=== PATIENT | female | born 1995 | race Caucasian/White ===

== ENCOUNTER 2017-09-12 10:55 | Emergency (ER) | payer BC ==
[2017-09-12 11:04] VITALS: BP 115/67
--- NOTE | 2017-09-12 11:36 | ER Document Report ---
ED Medical Screen (RME) - General Chief Complaint: Abdominal Pain Stated Complaint: ABDOMINAL PAIN Time Seen by Provider: 09/12/17 11:35 Notes: painful intercourse with vag discharge. abd pain/fever/diarrhea TRAVEL OUTSIDE OF THE [place] IN LAST 30 DAYS: No - Related Data Allergies/Adverse Reactions: amoxicillin Allergy (Verified 09/12/17 11:25) rash Past Medical History - Social History Chew tobacco use (# tins/day): No Frequency of alcohol use: Occasional Drug Abuse: None Renal/ Medical History: Denies: Hx Peritoneal Dialysis Physical Exam - Vital signs Vitals: Temp Pulse Resp BP Pulse Ox 98.4 F 77 16 115/67 99 09/12/17 11:02 09/12/17 11:02 09/12/17 11:02 09/12/17 11:02 09/12/17 11:02 Course - Vital Signs Vital signs: Temp Pulse Resp BP Pulse Ox 98.4 F 77 16 115/67 99 09/12/17 11:02 09/12/17 11:02 09/12/17 11:02 09/12/17 11:02 09/12/17 11:02
[2017-09-12 12:19] LABS: ABSOLUTE BASOPHILS # (AUTO) 0.1 10^3/uL (0.0-0.2); ABSOLUTE EOSINOPHILS # (AUTO) 0.1 10^3/uL (0.0-0.6); ABSOLUTE MONOCYTES (AUTO) 0.3 10^3/uL (0.1-1.4); ABSOLUTE NEUT (AUTO) 5.3 10^3/uL (1.7-8.2); BASOPHILS % (AUTO) 1.1 % (0-2); EOSINOPHILS % (AUTO) 1.3 % (0-6); HEMATOCRIT 39.9 % (36.0-47.0); HEMOGLOBIN 13.8 g/dL (12.0-15.5); MEAN CORPUSCULAR HGB CONC 34.6 g/dL (32.0-36.0); MEAN CORPUSCULAR VOLUME 90 fl (80-97); MONOCYTES % (AUTO) 3.9 % (3-13); PLATELET COUNT 231 10^3/uL (150-450); RED BLOOD COUNT 4.44 10^6/uL (3.72-5.28); RED CELL DISTRIBUTION WIDTH 13.3 % (11.5-14.0); SEGMENTED NEUTROPHILS % (AUTO) 67.7 % (42-78); TOTAL CELLS COUNTED % (AUTO) 100 %; WHITE BLOOD COUNT 7.8 10^3/uL (4.0-10.5)
[2017-09-12] MEDS ORDERED: IBUPROFEN 800 MG TABLET PO ONE (12:30)
--- NOTE | 2017-09-12 12:30 | ER Document Report ---
ED GI/ - General Chief Complaint: Abdominal Pain Stated Complaint: ABDOMINAL PAIN Time Seen by Provider: 09/12/17 11:35 Mode of Arrival: Ambulatory Information source: Patient Notes: Patient is a 22-year-old female who presents to the ER today for right lower quadrant abdominal pain 2-3 days. Patient states that she has a history of ovarian cysts, one that has ruptured before and states that this feels like the same pain. Patient still has her appendix. She admits to nausea and vomiting but no fever chills, diarrhea. She denies any abnormal vaginal discharge, dysuria, worry for any STDs. TRAVEL OUTSIDE OF THE [place] IN LAST 30 DAYS: No - Related Data Allergies/Adverse Reactions: amoxicillin Allergy (Verified 09/12/17 11:25) rash Past Medical History - General Information source: Patient - Social History Smoking Status: Current Some Day Smoker Chew tobacco use (# tins/day): No Frequency of alcohol use: Occasional Drug Abuse: None Family History: Reviewed & Not Pertinent Patient has suicidal ideation: No Patient has homicidal ideation: No Renal/ Medical History: Denies: Hx Peritoneal Dialysis Review of Systems - Review of Systems Constitutional: No symptoms reported EENT: No symptoms reported Cardiovascular: No symptoms reported Respiratory: No symptoms reported Gastrointestinal: See HPI Genitourinary: No symptoms reported Female Genitourinary: See HPI Musculoskeletal: No symptoms reported Skin: No symptoms reported Hematologic/Lymphatic: No symptoms reported Neurological/Psychological: No symptoms reported Physical Exam - Vital signs Vitals: Temp Pulse Resp BP Pulse Ox 98.4 F 77 16 115/67 99 09/12/17 11:02 09/12/17 11:02 09/12/17 11:02 09/12/17 11:02 09/12/17 11:02 - Notes Notes: PHYSICAL EXAMINATION: GENERAL: Well-appearing and in no acute distress. HEAD: Atraumatic, normocephalic. EYES: Pupils equal round and reactive to light, extraocular movements intact, sclera anicteric, conjunctiva are normal. NECK: Normal range of motion, supple without lymphadenopathy LUNGS: CTAB and equal. No wheezes rales or rhonchi. HEART: Regular rate and rhythm without murmurs ABDOMEN: Soft, right lower quadrant, suprapubic tenderness. No guarding, no rebound BACK: no vertebral tenderness, normal ROM GI/: no CVA tenderness EXTREMITIES: Normal range of motion, no pitting edema. No cyanosis. NEUROLOGICAL: Cranial nerves grossly intact. Normal sensory/motor exams. PSYCH: Normal mood, normal affect. SKIN: Warm, Dry, normal turgor, no rashes or lesions noted Course - Re-evaluation Re-evalutation: 09/12/17 14:21 Patient eloped at 1358, did not want to wait on ultrasound any longer. Ultrasound was not performed today. Lab work unremarkable. - Vital Signs Vital signs: Temp Pulse Resp BP Pulse Ox 98.4 F 77 16 115/67 99 09/12/17 11:02 09/12/17 11:02 09/12/17 11:02 09/12/17 11:02 09/12/17 11:02 - Laboratory Result Diagrams: 09/12/17 11:59 09/12/17 11:59 Laboratory results interpreted by me: 09/12/17 09/12/17 11:59 11:59 AST 103 H Alkaline Phosphatase 34 L Urine Ketones TRACE H Urine Blood MODERATE H Urine Urobilinogen 2.0 H Ur Leukocyte Esterase TRACE H Discharge - Discharge Clinical Impression: Right lower quadrant abdominal pain Condition: Stable Disposition: ELOPED
[2017-09-12 12:36] LABS: ALANINE AMINOTRANSFERASE 48 U/L (9-52); ALBUMIN 4.6 g/dL (3.5-5.0); ALKALINE PHOSPHATASE 34 U/L (38-126); ANION GAP 9 (5-19); ASPARTATE AMINO TRANSFERASE 103 U/L (14-36); BILIRUBIN,DIRECT 0.4 mg/dL (0.0-0.4); BLOOD UREA NITROGEN 19 mg/dL (7-20); CALCIUM 10.1 mg/dL (8.4-10.2); CARBON DIOXIDE 24 mmol/L (22-30); CHLORIDE 105 mmol/L (98-107); GLUCOSE 82 mg/dL (75-110); POTASSIUM 4.5 mmol/L (3.6-5.0); SODIUM 138.1 mmol/L (137-145); TOTAL PROTEIN 7.2 g/dL (6.3-8.2)
[2017-09-12 13:01] LABS: APPEARANCE,URINE SLIGHTLY-CLOUDY; BILIRUBIN,URINE NEGATIVE (NEGATIVE); GLUCOSE, URINE NEGATIVE (NEGATIVE); KETONES,URINE TRACE mg/dL (NEGATIVE); LEUKOCYTE ESTERASE,URINE TRACE (NEGATIVE); NITRITE,URINE NEGATIVE (NEGATIVE); PROTEIN,URINE NEGATIVE (NEGATIVE); URINE SPECIFIC GRAVITY 1.029
[2017-09-12 13:02] LABS: COLOR,URINE YELLOW
== END 2017-09-12 13:56 | disposition left against medical advice (07) ==
LOC: ER 10:55
DX: R10.31 Right lower quadrant pain (principal); R11.2 Nausea with vomiting, unspecified; F17.200 Nicotine dependence, unspecified, uncomplicated; Z87.42 Personal history of other diseases of the female genital tract; Z88.0 Allergy status to penicillin
CPT/HCPCS: 36415; 80053; 81001; 81025; 85025; 99281

== ENCOUNTER 2019-04-12 09:16 | Emergency (ER) | payer BC ==
[2019-04-12 09:23] VITALS: BP 105/74
[2019-04-12] MEDS ORDERED: ONDANSETRON 4 MG TAB.RAPDIS PO ONE (09:31)
--- NOTE | 2019-04-12 09:34 | ER Document Report ---
ED Medical Screen (RME) - General Chief Complaint: Upper Abdominal Pain Stated Complaint: TROUBLE BREATHING Time Seen by Provider: 04/12/19 09:26 Mode of Arrival: Ambulatory Information source: Patient Notes: 24-year-old female presented to ED for complaint of right upper quadrant pain that started on Tuesday. She states that by Tuesday her abdominal pain was all the way across the upper abdomen and by this morning she is getting some pain in her right shoulder and sometimes feels like it goes down her right arm. She states she has been nauseated but has not been vomiting. She states she does has noticed that when she eats fats or spices that the pain is much worse. She states she does have a medical history of ovarian breast and kidney cyst and the only surgery she has had his breast augmentation. 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 Patient is alert oriented respirations regular and unlabored speaking in full sentences walks with a even steady gait. I have greeted and performed a rapid initial assessment of this patient. A comprehensive ED assessment and evaluation of the patient, analysis of test results and completion of medical decision making process will be conducted by an additional ED providers. Dictation of this chart was performed using voice recognition software; therefore, there may be some unintended grammatical errors. TRAVEL OUTSIDE OF THE [place] IN LAST 30 DAYS: No - Related Data Allergies/Adverse Reactions: amoxicillin Allergy (Verified 04/12/19 09:17) rash Past Medical History Renal/ Medical History: Denies: Hx Peritoneal Dialysis Physical Exam - Vital signs Vitals: Temp Pulse Resp BP Pulse Ox 97.4 F 91 15 105/74 97 04/12/19 09:21 04/12/19 09:21 04/12/19 09:21 04/12/19 09:21 04/12/19 09:21 Course - Vital Signs Vital signs: Temp Pulse Resp BP Pulse Ox 97.4 F 91 15 105/74 97 04/12/19 09:21 04/12/19 09:21 04/12/19 09:21 04/12/19 09:21 04/12/19 09:21
[2019-04-12 10:00] LABS: ABSOLUTE BASOPHILS # (AUTO) 0.1 10^3/uL (0.0-0.2); ABSOLUTE EOSINOPHILS # (AUTO) 0.2 10^3/uL (0.0-0.6); ABSOLUTE LYMPHOCYTES (AUTO) 1.8 10^3/uL (0.5-4.7); ABSOLUTE MONOCYTES (AUTO) 0.6 10^3/uL (0.1-1.4); ABSOLUTE NEUT (AUTO) 7.9 10^3/uL (1.7-8.2); BASOPHILS % (AUTO) 0.7 % (0-2); EOSINOPHILS % (AUTO) 1.7 % (0-6); HEMATOCRIT 38.8 % (36.0-47.0); HEMOGLOBIN 13.1 g/dL (12.0-15.5); LYMPHOCYTES % (AUTO) 16.9 % (13-45); MEAN CORPUSCULAR HEMOGLOBIN 30.8 pg (27.0-33.4); MEAN CORPUSCULAR HGB CONC 33.9 g/dL (32.0-36.0); MEAN CORPUSCULAR VOLUME 91 fl (80-97); MONOCYTES % (AUTO) 5.4 % (3-13); PLATELET COUNT 293 10^3/uL (150-450); RED BLOOD COUNT 4.27 10^6/uL (3.72-5.28); RED CELL DISTRIBUTION WIDTH 13.2 % (11.5-14.0); SEGMENTED NEUTROPHILS % (AUTO) 75.3 % (42-78); TOTAL CELLS COUNTED % (AUTO) 100 %; WHITE BLOOD COUNT 10.4 10^3/uL (4.0-10.5)
[2019-04-12] MEDS ORDERED: OXYCODONE-ACETAMINOPHEN 5-325 MG TABLET PO ONE (10:01)
[2019-04-12 10:13] LABS: APPEARANCE,URINE SLIGHTLY-CLOUDY; BILIRUBIN,URINE NEGATIVE (NEGATIVE); COLOR,URINE AMBER; GLUCOSE, URINE NEGATIVE (NEGATIVE); KETONES,URINE TRACE mg/dL (NEGATIVE); LEUKOCYTE ESTERASE,URINE TRACE (NEGATIVE); NITRITE,URINE NEGATIVE (NEGATIVE); PROTEIN,URINE NEGATIVE (NEGATIVE); URINE SPECIFIC GRAVITY 1.024
[2019-04-12 10:26] LABS: URINE AMPHETAMINES SCREEN NEGATIVE; URINE BARBITURATES SCREEN NEGATIVE; URINE BENZODIAZEPINES SCREEN NEGATIVE; URINE COCAINE SCREEN NEGATIVE; URINE MARIJUANA (THC) SCREEN UNCONFIRMED POSITIVE; URINE METHADONE SCREEN NEGATIVE; URINE PHENCYCLIDINE SCREEN NEGATIVE
[2019-04-12 10:27] LABS: ALBUMIN 3.9 g/dL (3.5-5.0); ALKALINE PHOSPHATASE 60 U/L (38-126); ANION GAP 7 (5-19); ASPARTATE AMINO TRANSFERASE 15 U/L (14-36); BILIRUBIN,DIRECT 0.3 mg/dL (0.0-0.4); BILIRUBIN,TOTAL 0.3 mg/dL (0.2-1.3); BLOOD UREA NITROGEN 10 mg/dL (7-20); CALCIUM 9.3 mg/dL (8.4-10.2); CARBON DIOXIDE 30 mmol/L (22-30); CHLORIDE 101 mmol/L (98-107); GLUCOSE 99 mg/dL (75-110); POTASSIUM 3.8 mmol/L (3.6-5.0); TOTAL PROTEIN 6.7 g/dL (6.3-8.2)
--- NOTE | 2019-04-12 12:09 | RADIOLOGY REPORT (SQ) ---
EXAM DESCRIPTION: U/S ABDOMEN LIMITED W/O DOP COMPLETED DATE/TIME: 04/12/2019 11:35 am REASON FOR STUDY: upper abd pain started right worse with fat and sp COMPARISON: None. TECHNIQUE: Dynamic and static grayscale images acquired of the abdomen and recorded on PACS. Additio nal selected color Doppler and spectral images recorded. LIMITATIONS: None. FINDINGS: PANCREAS: No masses. Visualized pancreatic duct normal caliber. LIVER: No masses. Echotexture normal. LIVER VASCULATURE: Normal directional flow of the main portal vein and hepatic veins. GALLBLADDER: Polyps. Gallstone. ULTRASOUND-DETECTED NO'S SIGN: Negative. INTRAHEPATIC DUCTS AND COMMON DUCT: CBD and intrahepatic ducts normal caliber. No filling defects. INFERIOR VENA CAVA: Normal flow. AORTA: No aneurysm. RIGHT KIDNEY: Normal size. Normal echogenicity. No solid or suspicious masses. No hydronephrosis. No calcifications. PERITONEAL AND RIGHT PLEURAL SPACE: No ascites or effusions. OTHER: No other significant findings. IMPRESSION: Polyps and gallstone in the gallbladder. TECHNICAL DOCUMENTATION: JOB ID: [id number] [employer]- All Rights Reserved Reading location - IP/workstation name: [email or web address]
--- NOTE | 2019-04-12 12:44 | ER Document Report ---
Entered by WILLIAM ALMEIDA SCRIBE 04/12/19 1003 Acting as scribe for:KEMI PANDA MD ED General - General Chief Complaint: Upper Abdominal Pain Stated Complaint: TROUBLE BREATHING Time Seen by Provider: 04/12/19 09:26 Primary Care Provider: ROXANN RONDON MD [[facility] GARY] - Follow up as needed Mode of Arrival: Ambulatory Information source: Patient Notes: Patient is a 24-year-old female presenting to the emergency department compla ining of diffuse sharp abdominal pain for the last four days. Patient states her pain is exacerbated with food. Patient also complains of associated chills, nausea, diarrhea. Patient states that she is not normally a drinker, however, two weeks ago an event in her life has caused her to drink x1-3 drinks a night for the last two weeks. Patient denies vomiting, diarrhea, fever, cough, congestion, or abnormal vaginal discharge. TRAVEL OUTSIDE OF THE [place] IN LAST 30 DAYS: No - Related Data Allergies/Adverse Reactions: amoxicillin Allergy (Verified 04/12/19 09:17) rash Past Medical History - General Information source: Patient - Social History Smoking Status: Current Every Day Smoker Family History: Reviewed & Not Pertinent Patient has suicidal ideation: No Patient has homicidal ideation: No Renal/ Medical History: Denies: Hx Peritoneal Dialysis Malignancy Medical History: Denies: Other - Denies history of cancer Review of Systems - Review of Systems Constitutional: See HPI, Chills. denies: Fever Respiratory: See HPI. denies: Cough, Other - Congestion Gastrointestinal: See HPI, Abdominal pain, Nausea. denies: Diarrhea, Vomiting -: Yes All other systems reviewed and negative Physical Exam - Vital signs Vitals: Temp Pulse Resp BP Pulse Ox 97.4 F 91 15 105/74 97 04/12/19 09:21 04/12/19 09:21 04/12/19 09:21 04/12/19 09:21 04/12/19 09:21 - Notes Notes: Physical Exam: General: Alert, appears well. HEENT: Normocephalic. Atraumatic. PERRL. Extraocular movements intact. Oropharynx clear. Neck: Supple. Non-tender. Back: No ecchymosis present. No bruising present. Respiratory: No respiratory distress. Clear and equal breath sounds bilaterally. Cardiovascular: Regular rate and rhythm. Abdominal: Epigastric tenderness to palpation. Left upper quadrant, right upper quadrant tenderness to palpation. No distension. Normal Bowel Sounds. Back: Non-tender. No deformity or step off. Extremities: Moves all four extremities. Upper extremities: Normal inspection. Normal ROM. Lower extremities: Normal inspection. No edema. Normal ROM. Neurological: Normal cognition. AAOx4. Normal speech. Psychological: Normal affect. Normal Mood. Skin: Warm. Dry. Normal color. Course - Re-evaluation Re-evalutation: 04/12/19 12:41 Patient's labs within normal or nonsignificant. Patient found to have gallstones no signs of cholecystitis. Discussed findings with patient advised the low-fat diet will provide Zantac as well as nausea medication. Will provide surgical referral as well. Return precautions regarding any fevers chills worsening symptoms return for reevaluation. - Vital Signs Vital signs: Temp Pulse Resp BP Pulse Ox 97.4 F 91 15 105/74 97 04/12/19 09:21 04/12/19 09:21 04/12/19 09:21 04/12/19 09:21 04/12/19 09:21 - Laboratory Result Diagrams: 04/12/19 09:50 04/12/19 09:50 Laboratory results interpreted by me: 04/12/19 09:50 Urine Ketones TRACE H Urine Urobilinogen 2.0 H Ur Leukocyte Esterase TRACE H Discharge - Discharge Clinical Impression: Biliary colic Disposition: HOME, SELF-CARE Instructions: Antinausea Medication ([facility]), Gallbladder Disease ([facility]), Low-Fat Diet ([facility]) Prescriptions: Ranitidine HCl [Zantac] 150 mg PO BID #30 tablet Ondansetron [Zofran Odt 4 mg Tablet] 1 tab PO ASDIR PRN #15 tab.rapdis PRN Reason: For Nausea/Vomiting Referrals: ROXANN RONDON MD [[facility] GARY] - Follow up as needed I personally performed the services described in the documentation, reviewed and edited the documentation which was dictated to the scribe in my presence, and it accurately records my words and actions.
== END 2019-04-12 13:02 | disposition home or self-care (01) ==
LOC: ER 09:16
DX: K80.50 Calculus of bile duct without cholangitis or cholecystitis without obstruction (principal); R10.10 Upper abdominal pain, unspecified; R11.0 Nausea; R19.7 Diarrhea, unspecified; R68.83 Chills (without fever); F17.200 Nicotine dependence, unspecified, uncomplicated
CPT/HCPCS: 99284; 36415; 83690; 83735; 84703; 85025; 80053; 81001; 80307; 76705; S0119